=== PATIENT | female | born 1965 | race Caucasian/White ===

== ENCOUNTER 2024-07-30 23:03 | Emergency (ER) | payer OTHER ==
[~2024-07-30] VITALS: Ht 160 cm; Wt 56.7 kg
[2024-07-31] MEDS ORDERED: SUMATRIPTAN SUCCINATE 6 MG/0.5 ML VIAL SQ ONE (00:02)
[2024-07-31] MEDS ORDERED: METOCLOPRAMIDE HCL 10 MG/2 ML VIAL ONE (00:02)
[2024-07-31] MEDS: SUMATRIPTAN SUCCINATE 6 MG/0.5 ML VIAL SQ ONE (00:18)
[2024-07-31] MEDS: METOCLOPRAMIDE HCL 10 MG/2 ML VIAL IV ONE (00:18)
[2024-07-31] MEDS: IV NS 0.9% 1,000 ML BAG IV ONE (00:18)
[2024-07-31 01:04] VITALS: BP 121/81; TEMP 98.3; O2SAT 98
== END 2024-07-31 01:04 | disposition left against medical advice (07) ==
LOC: ER 23:50
DX: G43.909 Migraine, unspecified, not intractable, without status migrainosus (principal)
CPT/HCPCS: 99285; 70450; 96374; 96361; 96372; J3030; J2765